=== PATIENT | female | born 1990 | race Caucasian/White ===

== ENCOUNTER 2019-02-18 11:10 | Day surgery (SDC) | payer OTHER, SELFPAY ==
[2019-02-14 13:24] VITALS: BMI 31.0
[2019-02-18] VITALS (7 sets, daily range): BP systolic 107–134; BP diastolic 65–86; PULSE 71–92; RESP 11–20; TEMP 36.2–36.6; O2SAT 93–98; BMI 31.0
--- NOTE | 2019-02-18 | DI.RAD.S_ITS ---
PROCEDURE: XR HUMERUS RT 2V INDICATIONS: FX REPAIR, BROKE IN OCTOBER 16, NOT HEALING TECHNIQUE: 2 views of the humerus were acquired. [facility] [place], XR HUMERUS RIGHT, 02/03/2019, 9:24. FINDINGS: Bones: Intraoperative examination demonstrates improved alignment status post ORIF of mid right humeral shaft fracture. Fixation plate and screws are in expected positions. Soft tissues: No suspicious soft tissue calcifications. IMPRESSION: Improved alignment status post ORIF. Dictated by: Quinton Marti [facility] Interpreted: Aylin Vidal MD on 02/18/2019 at 17:18 Approved by: Aylin Vidal M.D. on 02/18/2019 at 17:43
[2019-02-18] MEDS: LACTATED RINGERS 1,000 ML 42 ML IV ×2 (12:30→14:48)
--- NOTE | 2019-02-18 12:44 | PM.PREOP ---
Pre-operative Note Interval Note History & Physical reviewed/Exam performed by Physician: Yes Changes to H&P: No
--- NOTE | 2019-02-18 13:21 | PM.OP.1 ---
Operative Date/Time/Diagnoses Date of procedure: 02/18/19 Time of procedure: 15:50 Pre-op diagnosis: Right humerus fracture nonunion Post-op diagnosis: same Procedure & Clinicians Procedure: Open reduction internal fixation of right humerus fracture with plate and iliac crest bone graft Same procedure as scheduled: Yes Indications: 28-year-old female is over 3 months after a right humerus fracture. She was treated with a brace but went on to a nonunion. It was felt that she would benefit from ORIF with bone graft. Risks and benefits of surgery discussed and appropriate consent obtained. Surgeon: Travis Tang Supervisor Type Bar And Segment: Liss Jolley Anesthesia Type: General and Peripheral nerve block Operative Notes Findings: None Closure Type: primary Specimen(s): none sent Prosthetic devices, grafts, tissues, transplants, or devices: Synthes large frag plate and screws Estimated Blood Loss (mL): 20 Procedure in detail: Patient brought to the operating room and intubated on the table. She had already had a preoperative block. Attention was turned towards the well-marked right upper extremity. Time-out was performed. Preoperative antibiotics were given. The right arm and pelvis was prepped and draped in standard sterile fashion. We made a curved longitudinal incision over the lateral border of the right biceps for standard anterolateral approach. The fascia was split. She was quite scarred in from the fibrous nonunion but we were able to identify the mobile wad as well as the biceps. The lateral cutaneous nerve was identified distally. We retracted the biceps medially and expose the brachioradialis which was somewhat shredded and split this down the middle. We did minimal retraction through the brachialis laterally in order to protect the radial nerve from any traction. The fracture was exposed. We used curettes and elevators to subperiosteally elevated up the proximal fragment end. Once we were able to finally free this up we used a curette to open up the canal and decorticate and remove all the previous fibrous tissue until the fracture was exposed down to bleeding bone. We then began exposing the distal fragment. Again we subperiosteally elevated up around the fracture edges and removed all the fibrous scar tissue until finally we could free this up. A curette was again used to open up the intramedullary canal and decorticate remove all the old fibrous nonunion tissue to we came down to fresh bleeding bone. The fracture was reduced under x-ray guidance. I then took a 7 hole large fragment DCS plate. This was held with a clamp on the distal fragment and confirmed reduction with x-ray. We placed a neutral screw. We then moved the clamp to the proximal fragment with care to spare remained subperiosteal just at the distal aspect. Reduction was confirmed on x-ray. We then placed a screw with compression and tightened it down. X-ray showed good reduction. We then filled the remainder of the holes on both sides with 3 bicortical screws on each end. The middle hole was empty over the fracture site itself. Final x-rays were taken. The wound was then copiously irrigated. A small stab incision was made over the right pelvis lateral to the ASIS. A Jamshidi needle was passed through the pelvis and 3 mL of bone marrow were aspirated. This was mixed with DMB bloody. The bone graft was placed into the canal as well as around the fracture site. Fascia and superficial were closed. The skin was closed. Sterile dressing was placed. She was then extubated brought to recovery with no complications. Complications: none Post-operative Condition: stable Disposition: PACU Plan for aftercare: Outpatient. Begin gentle range of motion with pendulums as tolerated.
[2019-02-18] MEDS: CEFAZOLIN 2 GM/100 ML FROZ.PIGGY IV (13:44)
--- NOTE | 2019-02-18 13:45 | SUR.PREOP ---
Addendum entered by Jackelin Coon R.N. 02/18/19 13:52: Rhythm strip and VS on paper documentation. Tolerated the procedure well, A&O throughout. Glasses to the OR with her. Stable Original Note: 1316 Pt in room 5 for regional block. Put on O2 at 2LNP, continuous VS and cardiac monitoring. Rx given by Dr. Iverson 1320 DrMarlo prepping site, pt awake, oriented, tolerating medication well. Was teary prior to Rx, resolved.
--- NOTE | 2019-02-18 14:05 | SUR.OPER ---
Supine on padded OR bed, head on pillow, arms secured on padded arm boards at <90 degrees abduction, legs uncrossed, safety belt at thigh, tape over blanket over lower legs.
[2019-02-18] MEDS: SODIUM CHLORIDE 0.9% 1,000 ML, GENTAMICIN 80 MG IRR (14:12)
--- NOTE | 2019-02-18 14:12 | P.PCN_ITS ---
Procedures Date/Time Date of procedure: 02/18/19 Time of procedure: 13:20 General Procedure description: Ultrasound guided supraclavicular brachial plexus nerve block for post op pain control after right humerus ORIF by Dr. Tang. Risk an d benefits of procedure discussed with patient. ASA monitoring applied to patient. O2 given via nasal cannula. 2 mg Versed and 100 mcg fentanyl given for procedural sedation. Skin site was prepped with chlorhexidine and allowed to fully dry. Sterile gloves, mask, hat and probe cover were used to maintain sterility. 2% lidocaine and 30ga needle was used to make a small skin wheal at needle insertion site. Under ultrasound guidance, a 21ga 50mm Pajunk needle was directed posterior to the clavicle toward the 1st rib and subclavian artery. Nerve bundles superficial to subclavian artery were infiltrated with 10 mL 0.5% ropivacaine and 5mg dexamethasone. Then nerve bundles deep and lateral to the subclavian were infiltrated with 10mL 0.5% ropi + 10mg dex. Patient reported mild, resolving parasthesias after needle repositioning. Patient tolerated procedure well.
[2019-02-18] MEDS: BUPIVACAINE 0.5% W/ EPI (PF) VIAL 30 ML INJ (14:13)
--- NOTE | 2019-02-18 14:14 | SUR.OPER ---
GLASSES IN LABELED BAG TO PACU WITH PATIENT.
--- NOTE | 2019-02-18 16:10 | SUR.PHASEI ---
to PACU awake, drowsy, oriented. Dr. Tang and DJ have spoken with patient, told her to use her sling (pt states that her has it). 160 HOB eleveted, water given. Denies pain/nausea.
--- NOTE | 2019-02-18 16:56 | SUR.PHASEII ---
1645 Ambulated to bathroom, stable on feet, voided w/o difficulty. RUE status stable. No pain or nausea. Ring in right ear, tape removed. States that they have all belongings. Stable and pleasant
== END 2019-02-18 16:47 | disposition home or self-care (01) ==
PROVIDERS: PCP Family Medicine; Visit Provider Orthopaedic Surgery
PROC: (CPT 24515; principal; 2019-02-18 13:15)
DX: S42.321 Displaced transverse fracture of shaft of humerus, right arm (principal); G89.18 Other acute postprocedural pain; F17.210 Nicotine dependence, cigarettes, uncomplicated
CPT/HCPCS: 24515; 20900; 64415; 64450; 73060; 76000; J0690; J1100; J2250; J2405; J2704; J3010

== ENCOUNTER → 2019-06-09 16:21 | Outpatient (CLI) | payer OTHER, SELFPAY ==
[2019-06-09 18:08] LABS: Thyroid Stimulating Hormone 1.27 uIU/mL (0.47-4.68)
[2019-06-10 13:20] LABS: Pregnancy Test Serum,Qual Negative (Negative)
[2019-06-13 08:02] LABS: Varicella IgG Antibody < 135.00 Index (< 135.00)
== END ==
PROVIDERS: PCP Family Medicine; Referring Provider Obstetrics & Gynecology; Visit Provider Obstetrics & Gynecology
DX: N91.1 Secondary amenorrhea (principal)
CPT/HCPCS: 36415; 84146; 84443; 84703; 86762; 86765; 86787

== ENCOUNTER → 2019-06-24 08:29 | Outpatient (CLI) | payer OTHER, SELFPAY ==
[2019-06-24 10:06] LABS: Progesterone, Total 0.82 ng/mL
== END ==
PROVIDERS: PCP Family Medicine; Referring Provider Obstetrics & Gynecology; Visit Provider Obstetrics & Gynecology
DX: N91.2 Amenorrhea, unspecified (principal)
CPT/HCPCS: 36415; 84144

== ENCOUNTER → 2019-09-30 08:16 | Outpatient (CLI) | payer OTHER, SELFPAY ==
[2019-09-30 10:44] LABS: Progesterone, Total 9.06 ng/mL
== END ==
PROVIDERS: PCP Family Medicine; Referring Provider Obstetrics & Gynecology; Visit Provider Obstetrics & Gynecology
DX: N97.0 Female infertility associated with anovulation (principal)
CPT/HCPCS: 36415; 84144

== ENCOUNTER → 2019-10-24 07:37 | Outpatient (CLI) | payer OTHER, SELFPAY ==
[2019-10-24 10:01] LABS: HCG Quantitative /Beta subunit 27131 mIU/mL
== END ==
PROVIDERS: PCP Family Medicine; Referring Provider Obstetrics & Gynecology; Visit Provider Obstetrics & Gynecology
DX: N92.6 Irregular menstruation, unspecified (principal)
CPT/HCPCS: 36415; 84702

== ENCOUNTER → 2019-11-05 08:58 | Outpatient (CLI) | payer OTHER, SELFPAY ==
[2019-11-05 09:58] LABS: Add Manual Diff / Slide Review NO; Basophils Absolute Auto 0 /uL (0-100); Basophils Percent Auto 0.4 % (0-2); Eosinophils Absolute Auto 100 /uL (0-450); Eosinophils Percent Auto 1.5 % (2-4); Hematocrit 41.3 % (36-46); Hemoglobin 13.8 g/dL (12.0-16.0); Lymphocytes Absolute Auto 1500 /uL (1100-4500); Lymphocytes Percent Auto 15.7 % (25-40); Mean Corpuscular HGB Conc 33.6 % (30-36); Mean Corpuscular Hemoglobin 29.8 PG (26-34); Mean Corpuscular Volume 88.8 fL (80-100); Monocytes Absolute Auto 700 /uL (0-900); Neutrophils Absolute Auto 7100 /uL (1500-7000); Neutrophils Percent Auto 75.4 % (50-75); Platelet Count 230 X10^3/uL (150-400); Red Blood Cell Count 4.64 X10^6/uL (4.0-5.2); Red Cell Distribution Width 12.8 % (11.6-14.8); White Blood Cell Count 9.4 X10^3/uL (4.5-11.0)
[2019-11-06 04:39] LABS: RPR Screen Non Reactive (Non Reactive)
[2019-11-06 15:56] LABS: Hepatitis B Surface Antigen NEGATIVE s/c (NEGATIVE)
[2019-11-06 16:14] LABS: HIV 1 & 2 Ab/Ag 4th Gen Combo NEGATIVE (NEGATIVE); Hep C Virus Ab w/Reflex Quant NEGATIVE s/c (NEGATIVE)
[2019-11-11 12:36] LABS: CF Result Comment: (.)
== END ==
PROVIDERS: PCP Family Medicine; Referring Provider Obstetrics & Gynecology; Visit Provider Obstetrics & Gynecology
DX: Z34.01 Encounter for supervision of normal first pregnancy, first trimester (principal); Z3A.08 8 weeks gestation of pregnancy
CPT/HCPCS: 36415; 80055; 81223; 86803; 86850; 86900; 86901; 87389

== ENCOUNTER → 2019-12-31 08:25 | Outpatient (CLI) | payer OTHER, SELFPAY ==
[2020-01-07 22:49] LABS: AFP, Serum 20.9 ng/mL (.); Calc Gestational Age EDD (.); Estriol, Free 0.71 ng/mL (.); Inhibin A, Dimeric 52.19 pg/mL (.); Inhibin A, MoM 0.38 (.); Maternal Ethnicity Caucasian (.); Maternal Weight 211 lbs (.); Number of Fetuses No (.); OSBR Risk 1 IN 10000 (.); Results Report (.); Test Results *Screen Negative* (.); hCG, MoM 0.61 (.); hCG, Serum 20584 mIU/mL (.)
== END ==
PROVIDERS: PCP Family Medicine; Referring Provider Obstetrics & Gynecology; Visit Provider Obstetrics & Gynecology
DX: Z34.02 Encounter for supervision of normal first pregnancy, second trimester (principal); Z3A.16 16 weeks gestation of pregnancy
CPT/HCPCS: 36415; 82105; 82677; 84702; 86336

== ENCOUNTER → 2020-01-26 09:09 | Outpatient (CLI) | payer OTHER, SELFPAY ==
--- NOTE | 2020-01-26 09:10 | DI.US.S_ITS ---
PROCEDURE: US OB >= 14 WEEKS FETUS INDICATIONS: ANATOMY SCAN OUTSIDE/PRIOR DATING DATA: Last menstrual period (LMP): 09/09/19. LMP-based estimated date of delivery (CHRIS): 06/15/20 . First dating scan (date and location): 11/05/19 . Estimated date of delivery (CHRIS) from first dating scan: 06/20/20 . TECHNIQUE: Real-time scanning was performed of the fetus, with image documentation and biometric measurements. Endovaginal scanning: Not needed COMPARISON: [facility], , OB >= 14 WEEKS FETUS, 12/31/2019, 8:12. FINDINGS: General: A single living intrauterine gestation is present. Presentation: Breech. Placenta: Placental position is anterior , without previa. Amniotic fluid index: 15.5 cm, normal range is 5-24 cm. heart rate: 149 beats per minute. Maternal cervical canal: 3.2 cm long. Normal lower limit is 2.5 cm. biometrics: Biparietal diameter: 5.0 cm, 21 weeks 0 days Head circumference: 17.4 cm, 20 weeks 0 days Abdominal circumference: 14.7 cm, 20 weeks 0 days Femur length: 3.2 cm, 20 weeks 1 day Estimated gestational age from initial scan: 19 weeks 1 day Composite gestational age from present scan: 20 weeks 2 days Estimated weight and percentile: 330 g, 90 second percentile Measurement variability for biometric dating: +/- 7 days from 14 weeks to 15 weeks 6 days gestation, +/- 10 days from 16 weeks to 21 weeks 6 days gestation, +/- 2 weeks from 22 weeks to 27 weeks 6 days gestation, +/- 3 weeks for 28 weeks gestation or later. weight reference: 4500 g or EFW >90/95% is considered macrosomia or large for gestational age. EFW <10% is small for gestational age. EFW 5% or less is considered intra-uterine growth restriction. Anatomic survey: Neuro: Ventricles are non-dilated at less than 10 mm. Cisterna magna is normal at 3-11 mm. Cerebellum is normal in size and morphology. Nuchal skin fold: Normal at less than 6 mm between 14-21 weeks gestational age. Face: Nose and lips, facial profile are not well seen due to positioning. Spine: Sacral region not well seen due to positioning. Heart: 4-chambered heart is present, with normal ventricular outflow tracts. Diaphragm: Diaphragm is intact. Stomach: Left-sided stomach is present. Kidneys: No hydronephrosis. Normal is less than 5 mm in 2nd trimester, less than 7 mm in 3rd trimester. Cord: 3-vessel cord has orthotopic insertion. Bladder: Normal in size. Extremities: All 4 extremities identified. IMPRESSION: Appropriate interval growth, no anomaly seen but the facial area and the sacral region of the spine were not well visualized due to positioning. Follow-up limited Ob ultrasound in 1-2 weeks is recommended to attempt completion of the anatomic survey. The delivery date is projected to be centered on 06/20/20. Current positioning is breech. Dictated by: Austyn Jonas M.D. on 01/26/2020 at 15:14 Approved by: Austyn Jonas M.D. on 01/26/2020 at 15:18
== END ==
PROVIDERS: PCP Family Medicine; Referring Provider Family Medicine; Visit Provider Obstetrics & Gynecology
DX: Z34.02 Encounter for supervision of normal first pregnancy, second trimester (principal); Z3A.20 20 weeks gestation of pregnancy
CPT/HCPCS: 76811

== ENCOUNTER → 2020-01-28 09:06 | Outpatient (CLI) | payer OTHER, SELFPAY | PROVIDERS: PCP Family Medicine; Visit Provider Obstetrics & Gynecology | DX: Z34.02 Encounter for supervision of normal first pregnancy, second trimester (principal); Z3A.20 20 weeks gestation of pregnancy | CPT/HCPCS: 87086 ==

== ENCOUNTER → 2020-02-04 07:16 | Outpatient (CLI) | payer OTHER, SELFPAY ==
--- NOTE | 2020-02-04 07:17 | DI.US.S_ITS ---
PROCEDURE: US OB FOLLOW UP INDICATIONS: FOLLOW-UP OUTSIDE/PRIOR DATING DATA: Last menstrual period (LMP): 09/09/19. LMP-based estimated date of delivery (CHRIS): 06/15/20 . First dating scan (date and location): 11/05/19 . Estimated date of delivery (CHRIS) from first dating scan: 06/20/20 . TECHNIQUE: Real-time scanning was performed of the fetus, with image documentation. Endovaginal scanning: Not needed COMPARISON: None. FINDINGS: A single living intrauterine gestation is present. Presentation: Breech. Placenta: Placental position is anterior , without previa. Amniotic fluid index: 15.2 cm, normal range is 5-24 cm. heart rate: 133 beats per minute. Estimated gestational age from initial scan: 20 weeks 3 days Completion of the anatomic survey was accomplished, with excellent visualization of the facial area nose and lips, and the sacral spine area also appears normal. . IMPRESSION: Completion of the anatomic survey accomplished, no anomaly found, delivery date projected to be centered on 06/20/20. Dictated by: Austyn Jonas M.D. on 02/04/2020 at 8:47 Approved by: Austyn Jonas M.D. on 02/04/2020 at 8:50
== END ==
PROVIDERS: PCP Family Medicine; Referring Provider Family Medicine; Visit Provider Obstetrics & Gynecology
DX: Z36.2 Encounter for other antenatal screening follow-up (principal); Z3A.20 20 weeks gestation of pregnancy
CPT/HCPCS: 76816

== ENCOUNTER → 2020-03-04 09:37 | Outpatient (CLI) | payer OTHER, SELFPAY ==
[2020-03-04 11:24] LABS: Hematocrit 37.5 % (36-46)
[2020-03-04 11:41] LABS: GTT (PREG) 1 Hour PP 50gm Dose 109 mg/dL (76-139)
== END ==
PROVIDERS: PCP Family Medicine; Referring Provider Obstetrics & Gynecology; Visit Provider Obstetrics & Gynecology
DX: Z34.02 Encounter for supervision of normal first pregnancy, second trimester (principal); Z3A.26 26 weeks gestation of pregnancy
CPT/HCPCS: 36415; 82950; 85014; 85018

== ENCOUNTER 2020-05-06 15:34 | Outpatient (CLI) | payer OTHER, SELFPAY | END 2020-05-06 16:40 | disposition home or self-care (01) | LOC: LABOR 16:08 → OB 05-07 11:07 | PROVIDERS: PCP Family Medicine; Referring Provider Obstetrics & Gynecology; Visit Provider Obstetrics & Gynecology | DX: O36.8330 Maternal care for abnormalities of the fetal heart rate or rhythm, third trimester, not applicable or unspecified (principal); O32.1XX0 Maternal care for breech presentation, not applicable or unspecified; Z3A.34 34 weeks gestation of pregnancy | CPT/HCPCS: 59025; G0378; G0379 ==

== ENCOUNTER → 2020-05-17 11:28 | Outpatient (CLI) | payer OTHER, SELFPAY ==
[2020-05-18 07:48] LABS: Strep Grp B PCR NEG for Grp B Strep
== END ==
PROVIDERS: PCP Family Medicine; Visit Provider Obstetrics & Gynecology
DX: Z34.03 Encounter for supervision of normal first pregnancy, third trimester (principal); Z3A.35 35 weeks gestation of pregnancy
CPT/HCPCS: 87653

== ENCOUNTER 2020-05-17 11:57 | Outpatient (CLI) | payer OTHER, SELFPAY | END 2020-05-17 12:55 | disposition home or self-care (01) | LOC: LABOR 12:18 → OB 15:30 | PROVIDERS: PCP Family Medicine; Referring Provider Obstetrics & Gynecology; Visit Provider Obstetrics & Gynecology | DX: O32.1XX0 Maternal care for breech presentation, not applicable or unspecified (principal); Z3A.35 35 weeks gestation of pregnancy | CPT/HCPCS: 59025; 87653; G0378; G0379 ==

== ENCOUNTER 2020-05-24 15:30 | Outpatient (CLI) | payer OTHER, SELFPAY | END 2020-05-24 16:17 | disposition home or self-care (01) | LOC: LABOR 15:38 → OB 05-25 07:35 | PROVIDERS: PCP Family Medicine; Referring Provider Obstetrics & Gynecology; Visit Provider Obstetrics & Gynecology | DX: O32.1XX0 Maternal care for breech presentation, not applicable or unspecified (principal); Z3A.36 36 weeks gestation of pregnancy | CPT/HCPCS: 59025; G0378; G0379 ==

== ENCOUNTER 2020-05-27 14:42 | Outpatient (CLI) | payer OTHER, SELFPAY | END 2020-05-27 15:12 | disposition home or self-care (01) | LOC: LABOR 15:00 → OB 05-28 12:31 | PROVIDERS: PCP Family Medicine; Referring Provider Obstetrics & Gynecology; Visit Provider Obstetrics & Gynecology | DX: O32.1XX0 Maternal care for breech presentation, not applicable or unspecified (principal); Z3A.37 37 weeks gestation of pregnancy | CPT/HCPCS: 59025; G0378; G0379 ==

== ENCOUNTER 2020-05-29 13:21 | Inpatient (IN) | payer OTHER, SELFPAY ==
--- NOTE | 2020-05-29 13:31 | P.HPOB_ITS ---
OB HPI History of Present Condition Chief complaint: Narrative: Gabby Junior is a 29 year old female 1 para 0 at 37-,4/7 weeks with spontaneous rupture of membranes with bloody fluid and breech presentation. Evaluation Evaluation Baseline heart rate: 186 Variability: Average (6-10) monitor accelerations: Present monitor decelerations: Absent Uterine Contraction Intensity: Mild Status: Category ll Cervical dilation (cm): 0 PFSH Medical History (Updated 05/10/20 @ 07:18 by Karine Funez MD) Irregular menstrual cycle Right humeral fracture (10/12/18) Surgical History (Updated 10/29/19 @ 16:16 by Maria Elena Galvan RN) History of open reduction and internal fixation (ORIF) procedure (~02/18/19) [place] teeth removed Family History (Updated 10/29/19 @ 16:13 by Maria Elena Galvan RN) Father Hypertension Mother Stroke Acute leukemia Seizures Grandmother Lupus History of colon surgery Sepsis Grandmother Uterine cancer Grandfather No known health problems Grandfather Family estrangement Social History marital status: details: Jm Junior [phone] household members: spouse lives independently: Yes pets and animals: Yes (Dogs and Cats ) education level: other ([employer] ) occupational status: employed ([employer]) current occupational exposures/hazards: Yes (Pandemic) Previous occupational history: [employer] veda/catholic: Jewish special veda needs: No leisure activities: other (Horseback riding) seatbelt use: always helmet use: No water heater temp set < 120 deg: Yes working smoke detector in home: Yes fire extinguisher in home: Yes carbon monox detector in home: Yes firearms in home: Yes firearms unloaded and locked: Yes Smoking Status: Former smoker (Quit October 2018) Tobacco: How many years used: 8 second hand exposure: No alcohol intake: former (pre- : rare use) substance use type: does not use and marijuana (occasional use, edibles) during the past year weight has: remained stable well-balanced diet: daily or most days daily servings fruits/ve-4 caffeine: Yes eating out: 1-3 times/week frequency: 3-4 times per week duration: 30-45 minutes/day Meds Home Medications and Allergies Home Medications Medication Instructions Recorded Confirmed Type prenat.vits,darian,qxt-pjtg-mmspj 1 tab PO DAILY 10/29/19 05/27/20 History Double Electric Breast Pump #1 ea 05/25/20 05/27/20 Rx Allergies Allergy/AdvReac Type Severity Reaction Status Date / Time No Known Drug Allergies Allergy Verified 05/27/20 14:16 Exam Vital Signs (past 8 hours): Generally: Patient in mild distress secondary to bleeding mild contractions Lungs: Clear to auscultation bilaterally Cardiovascular: Regular rate and rhythm Abdomen: Gravid Fundal height: 38 cm Estimated weight 7 lb Extremities: Trace edema, 1+ DTRs Assessment and Plan Assessment and Plan Assessment and Plan narrative: Assessment: 29-year-old 1 para 0 at 37-,4/7 weeks gestation with spontaneous rupture of membranes with bloody fluid Breech presentation Plan: Primary low-transverse section The risks, benefits, and alternatives to the procedure were explained to the patient. The risks including bleeding, infection, injury to the bowel, bladder, or ureters. She understands these risks and agrees to proceed. A full par Q was held and consent form was signed. Time Spent with Patient Total time spent with greater than 50% in coordination of care (as documented) at patient's floor/unit and/or counseling patient:: 15-24 minutes
--- NOTE | 2020-05-29 13:33 | PM.PREOP ---
Pre-operative Note COVID-19 COVID-19 status: Negative Result date/Date tested (Pos, Neg/Pending): 05/29/20 Interval Note History & Physical reviewed/Exam performed by Physician: Yes Changes to H&P: No H&P completed within 30 days and has changed as indicated here:: 05/29/20
[2020-05-29] MEDS: CEFAZOLIN 2 GM/100 ML FROZ.PIGGY IV (13:40)
[2020-05-29 13:42] LABS: Add Manual Diff / Slide Review NO; Basophils Absolute Auto 100 /uL (0-100); Basophils Percent Auto 0.6 % (0-2); Eosinophils Absolute Auto 200 /uL (0-450); Eosinophils Percent Auto 1.4 % (2-4); Hematocrit 41.5 % (36-46); Lymphocytes Absolute Auto 1800 /uL (1100-4500); Lymphocytes Percent Auto 16.7 % (25-40); Mean Corpuscular HGB Conc 33.6 % (30-36); Mean Corpuscular Hemoglobin 30.1 PG (26-34); Mean Corpuscular Volume 89.5 fL (80-100); Monocytes Absolute Auto 1000 /uL (0-900); Monocytes Percent Auto 9.4 % (3-14); Neutrophils Absolute Auto 7700 /uL (1500-7000); Neutrophils Percent Auto 71.9 % (50-75); Platelet Count 208 X10^3/uL (150-400); Red Blood Cell Count 4.64 X10^6/uL (4.0-5.2); Red Cell Distribution Width 12.7 % (11.6-14.8); White Blood Cell Count 10.8 X10^3/uL (4.5-11.0)
[2020-05-29 13:52] VITALS: BP 130/74
[2020-05-29 13:54] LABS: COVID19 -Nasal RAPID Negative (Negative)
[2020-05-29] MEDS: LACTATED RINGERS 1,000 ML 100 ML IV ×2 (14:11→15:35)
--- NOTE | 2020-05-29 14:15 | SUR.OPER ---
Supine on Padded OR bed, head on pillow, safety belt at thigh, arms secured on padded arm boards at <90 degrees abduction. Bump under right buttock. Legs uncrossed with pillow under knees, gel pad to heels, tape over blanket to lower legs.
[2020-05-29 14:48] VITALS: BP 108/59; PULSE 77; RESP 11; TEMP 36.8; O2SAT 100
--- NOTE | 2020-05-29 14:50 | PM.PROC.1 ---
Procedures Date/Time Date of procedure: 05/29/20 Time of procedure: 14:09 General Procedure description: Pamphlet Distributor Documentation I assisted the OB software test and validation engineer in the section for this patient. My responsibilities included retracting and suctioning, and following with suture during closure. Please see the OB's note for details of the surgery. Complications: other (PROM, partial abruption, breech presentation)
[2020-05-29 14:52] VITALS: BP 123/69; PULSE 77; RESP 14; O2SAT 100
[2020-05-29 14:57] VITALS: BP 121/74; PULSE 76; RESP 11; O2SAT 100
[2020-05-29 15:07] VITALS: BP 119/79; PULSE 83; RESP 15; O2SAT 100
--- NOTE | 2020-05-29 15:17 | P.OP_ITS ---
Operative Date/Time/Diagnoses Date of procedure: 05/29/20 Time of procedure: 15:17 Pre-op diagnosis: Intrauterine at 37 and 4 7th weeks gestation Breech presentation Spontaneous rupture of membranes Post-op diagnosis: same Procedure & Clinicians Procedure: Procedures Operation Date: 05/29/20 14:00 Actual Procedures Side Surgeon p Section Karine Funez MD Indications: Thirty-seven and 4 7th weeks gestation Breech presentation Spontaneous rupture of membranes Surgeon: Karine Funez Front Load Trash Truck Driver: Sandy Caraballo Anesthesia Type: Spinal (With Duramorph) Operative Notes Findings: Live female infant in the single footling breech presentation Normal uterus, tubes, and ovaries Closure Type: primary Specimen(s): other (Cord bloods, placenta) Applied: catheter (To continuous drainage) Estimated blood loss (mL): 500 Blood products transfused: none Procedure in detail: The patient was taken to the operating room where she was placed in the seated position. Spinal anesthesia was administered. She was then placed in the dorsal supine position with a leftward tilt. She was prepped and draped in the usual sterile fashion. A timeout was performed. After spinal analgesia was found to be adequate, a Pfannenstiel skin incision was made 2 fingerbreadths above the pubic symphysis and carried through to the underlying layer fascia. The fascia was nicked in the midline, and the incision extended bilaterally with the Pfeiffer scissors. The superior aspect of the fascial incision was grasped with a Shankar clamps, elevated, and the underlying rectus muscles dissected off sharply and bluntly. Attention was then turned to the inferior aspect of this incision which in a similar fashion was grasped with a Shankar clamps, elevated, and the underlying rectus muscles dissected off sharply and bluntly. The rectus muscles were in the midline. The peritoneum was identified, grasped between 2 hemostats, and entered sharply with the Metzenbaum scissors. This incision was extended superiorly and inferiorly with good visualization of the bladder. The bladder blade was inserted. The vesicouterine peritoneum was identified, grasped with the pickup, and entered sharply with the Metzenbaum scissors. This incision was extended bilaterally, and the bladder flap was created digitally. The bladder blade was reinserted. The lower uterine segment was incised in a transverse fashion with the scalpel. Upon entering the amniotic sac there was a small amount of clear amniotic fluid. The was delivered by total breech extraction. The nose and mouth were suctioned with bulb suction. The remainder of the body delivered without difficulty. The cord was double clamped and cut. The was handed off to waiting RN and Peds. The placenta was delivered manually. The uterus was cleared of all clots and debris. There was a small marginal abruption at the edge of the placenta. There was found to be an extension of the uterine incision on the right side. This was repaired in a running interlocking suture with #1 chromic. The uterine incision was repaired with #1 chromic in a running interlocking fashion, and a second layer the same suture was used for an imbricating layer. Hemostasis was achieved. The tubes and ovaries were examined and were found to be normal. The gutters were cleared of all clots and debris. The bladder flap was reapproximated using 2-0 Vicryl in a running fashion. The parietal peritoneum was closed using 2-0 Vicryl in a running fashion. The fascia was reapproximated using 0 Vicryl in a running fashion. Subcutaneous layer was copiously irrigated with warm normal saline. 4 simple interrupted sutures of 3-0 Vicryl were placed to reapproximate the subcutaneous layer. The skin was closed with 4-0 Biosyn in a subcuticular fashion. Steri- Strips were placed. An Aquacel dressing was placed. The uterus was expressed of a small amount of old blood. Sponge, lap, and instrument counts were correct ?-2. The patient tolerated the procedure well, and was taken to PACU in stable condition. Complications: other (Marginal abruption approximately 5%) Post-operative Condition: stable Disposition: PACU Plan for aftercare: To the center after recovery
--- NOTE | 2020-05-29 15:21 | SUR.PHASEI ---
Report to MCKENZIE Rinaldi OB. Tranferred pt in stable condition.
[2020-05-29] MEDS: KETOROLAC 30 MG/ML VIAL IV (21:24)
[2020-05-30] MEDS: KETOROLAC 30 MG/ML VIAL IV ×2 (05:17→11:37)
[2020-05-30] MEDS: ACETAMINOPHEN 325 MG TABLET 650 MG PO ×3 (05:49→17:22)
[2020-05-30] MEDS: OXYCODONE IR 5 MG TABLET PO ×4 (05:49→21:54)
[2020-05-30 08:26] LABS: Hematocrit 35.8 % (36-46); Hemoglobin 11.6 g/dL (12.0-16.0)
--- NOTE | 2020-05-30 12:25 | P.PNOB_ITS ---
Subjective - OB Subjective Patient comments: no complaints, pain well controlled, tolerating diet and flatus present baby status: doing well and nursing well [place] feeding status: exclusively breast feeding Date Patient Seen: 05/30/20 Time Patient Seen: 12:26 Interval history: Patient is a 29-year-old 1 para 1 who is postop day # 1 status post primary low-transverse section for spontaneous rupture membranes and a single footling breech presentation at 37 and 4 7th weeks gestation. Exam Vital Signs (past 8 hours): Oxygen Delivery Method Room Air Narrative Exam Narrative: Generally: Sitting up in bed, nursing , no acute distress Lungs: Clear to auscultation bilaterally Cardiovascular: Regular rate and rhythm Abdomen: Soft, good bowel sounds Incision: Clean dry and intact with Aquacel dressing Extremities: Trace edema, negative Homans Objective Labs Result Diagrams: 05/30/20 08:11 Labs: Laboratory Results - last 24 hr 05/29/20 05/29/20 05/29/20 13:25 13:25 13:30 WBC 10.8 RBC 4.64 Hgb 14.0 Hct 41.5 MCV 89.5 MCH 30.1 MCHC 33.6 RDW 12.7 Plt Count 208 Neut % (Auto) 71.9 Lymph % (Auto) 16.7 L Navarro % (Auto) 9.4 Eos % (Auto) 1.4 L Baso % (Auto) 0.6 Neut # (Auto) 7700 H Lymph # (Auto) 1800 Navarro # (Auto) 1000 H Eos # (Auto) 200 Baso # (Auto) 100 SARS-CoV-2 (PCR) Negative Blood Type O Positive Antibody Screen Negative Crossmatch See Detail 05/30/20 08:11 WBC RBC Hgb 11.6 L Hct 35.8 L MCV MCH MCHC RDW Plt Count Neut % (Auto) Lymph % (Auto) Navarro % (Auto) Eos % (Auto) Baso % (Auto) Neut # (Auto) Lymph # (Auto) Navarro # (Auto) Eos # (Auto) Baso # (Auto) SARS-CoV-2 (PCR) Blood Type Antibody Screen Crossmatch Assessment & Plan Plan day: 1 plan OB: routine postop care Time Spent With Patient Time: Total time spent is greater than 50% in coordination of care (as documented) at patient's floor/unit and/or counseling patient: Time with patient: less than 15 minutes
[2020-05-30] MEDS: DOCUSATE 250 MG CAPSULE PO (13:27)
[2020-05-30] MEDS: PRENATAL VIT,CALC/IRON/FOLIC 1 TABLET 1 TAB PO (13:28)
[2020-05-30] MEDS: LANOLIN OINT 7 GM 1 APPLIC TOP (13:28)
[2020-05-30] MEDS: IBUPROFEN 600 MG TABLET PO (17:22)
[2020-05-31] MEDS: ACETAMINOPHEN 325 MG TABLET 650 MG PO ×3 (01:23→13:24)
[2020-05-31] MEDS: IBUPROFEN 600 MG TABLET PO ×3 (01:23→13:24)
[2020-05-31] MEDS: OXYCODONE IR 5 MG TABLET PO ×3 (02:23→13:24)
[2020-05-31 07:04] VITALS: BP 121/83; PULSE 78; RESP 16; TEMP 36.6
[2020-05-31] MEDS: DOCUSATE 250 MG CAPSULE PO (07:40)
[2020-05-31] MEDS: PRENATAL VIT,CALC/IRON/FOLIC 1 TABLET 1 TAB PO (07:40)
--- NOTE | 2020-06-02 01:01 | PM.OBDS.1 ---
Discharge Providers Provider Date of admission: 05/29/20 13:21 Discharge Date: 05/31/20 Primary care physician: Reji Cedeno MD Consults: 05/29/20 16:04 Consult to Medical Pathology Teacher Routine Comment: 05/30/20 15:52 Consult to Medical Pathology Teacher Routine Comment: Discharge provider: Karine Funez MD Summary Hospital Course Date Patient Seen: 05/31/20 Time Patient Seen: 11:30 Diagnoses: Thirty-eight weeks gestation Breech presentation Spontaneous rupture of membranes Primary low-transverse section Spinal anesthesia Hospital Course: Patient is a 29-year-old 1 para 1 who presented on May 29, 2020 with spontaneous rupture membranes with bloody amniotic fluid. She was scheduled for a section on June 07, 2020 for persistent breech presentation. She has had borderline oligohydramnios. She underwent an urgent primary low transverse section without complication. She was found to have a marginal abruption. Her course was unremarkable. On postop day # 2 she was tolerating a diet, pain was well controlled, going well, ambulating independently, and able to void without the catheter. Peripartum Data Delivery Method: Emergency Section Laceration Description: None Episiotomy description: None Procedures: Primary low-transverse section Spinal anesthesia complications: none Sharon 1: Gender: Female Disposition of : home Status at Discharge Cognitive/behavioral status at discharge: oriented Functional status at discharge: independent ambulation Overall status at discharge: patient is progressing back to baseline Time Spent with Patient Time attestation: Total time spent providing and/or coordinating discharge services: Time spent: Less than 30 minutes Objective Labs Result Diagrams: 05/30/20 08:11 Exam Vital Signs (past 8 hours): Oxygen Delivery Method Room Air Discharge Plan Discharge Plan Patient Disposition: Home Provider Discharge Comment: Patient to call with fever, chills, redness or drainage around the incision, or bleeding vaginally more than a pad in an hour Tylenol 650 mg every 6 hours ibuprofen 600 mg every 6 hours oxycodone 5 mg every 3 hours as needed Discharge orders & Medications Prescriptions: New ibuprofen 600 mg tablet 600 mg PO Q6H PRN (Reason: cramping or bleeding) Qty: 30 RF: 2 oxycodone 5 mg tablet 5 mg PO Q4H PRN (Reason: pain) Qty: 20 RF: 0 Continued (DME) Double Electric Breast Pump See Rx Instructions .Route .MEDSUPPLY Qty: 1 RF: 0 prenat.vits,darian,yjn-pggf-sudsp Tablet 1 tab PO DAILY RF: 0 Follow up/Referrals: Karine Funez MD [Physician] - 1 Week (June 07, Sunday, at 4:15pm with Dr Funez for dressing removal) Diet/Activity/Treatments Diet: Regular Activity: No heavy lifting. Nothing more than a gal of milk or baby. No baby in car seat Skin/Wound/Dressing Care Report to your healthcare provider any signs of infection, such as:: chills, fever, increased pain, unusual drainage and unusual redness Dressing: Do not removed Visit Report/Discharge Packet Instructions: DI for , DI for Prescription Opioid Use Stand Alone Forms: Discharge: Care Discharge Data Primary Care Provider: Reji Cedeno
== END 2020-05-31 14:40 | disposition home or self-care (01) | DRG 786 ==
PROVIDERS: Admitting Provider Obstetrics & Gynecology; PCP Family Medicine; Referring Provider Obstetrics & Gynecology; Visit Provider Obstetrics & Gynecology
PROC: 10D00Z1 Extraction of Products of Conception, Low, Open Approach (ICD-10-PCS; CPT 59514; principal; 2020-05-29 14:00)
DX: O64.8XX0 Obstructed labor due to other malposition and malpresentation, not applicable or unspecified (principal); O45.93 Premature separation of placenta, unspecified, third trimester; O42.92 Full-term premature rupture of membranes, unspecified as to length of time between rupture and onset of labor; Z3A.37 37 weeks gestation of pregnancy; Z37.0 Single live birth; Z20.822 Contact with and (suspected) exposure to COVID-19
CPT/HCPCS: 36415; 59050; 59510; 85014; 85018; 85025; 86850; 86900; 86901; 87635; C9803; G0379; J0690; J1885; J2274; J2590

== ENCOUNTER → 2021-10-20 17:02 | Outpatient (CLI) | payer OTHER, SELFPAY ==
[2021-10-20 17:19] LABS: Add Manual Diff / Slide Review NO; Basophils Absolute Auto 0 /uL (0-100); Basophils Percent Auto 0.4 % (0-2); Eosinophils Absolute Auto 100 /uL (0-450); Eosinophils Percent Auto 1.5 % (2-4); Hematocrit 38.2 % (36-46); Hemoglobin 13.4 g/dL (12.0-16.0); Lymphocytes Absolute Auto 2000 /uL (1100-4500); Lymphocytes Percent Auto 21.2 % (25-40); Mean Corpuscular HGB Conc 35.1 % (30-36); Mean Corpuscular Hemoglobin 30.4 PG (26-34); Mean Corpuscular Volume 86.5 fL (80-100); Monocytes Absolute Auto 800 /uL (0-900); Monocytes Percent Auto 8.1 % (3-14); Neutrophils Absolute Auto 6500 /uL (1500-7000); Neutrophils Percent Auto 68.8 % (50-75); Platelet Count 218 X10^3/uL (150-400); Red Blood Cell Count 4.42 X10^6/uL (4.0-5.2); Red Cell Distribution Width 12.7 % (11.6-14.8); White Blood Cell Count 9.5 X10^3/uL (4.5-11.0)
[2021-10-20 18:29] LABS: Hepatitis B Surface Antigen NEGATIVE s/c (NEGATIVE)
[2021-10-20 19:25] LABS: HIV 1 & 2 Ab/Ag 4th Gen Combo NEGATIVE (NEGATIVE); Hep C Virus Ab w/Reflex Quant NEGATIVE s/c (NEGATIVE)
[2021-10-22 08:53] LABS: RPR Screen Non Reactive (Non Reactive); Varicella IgG Antibody <135 index (Immune >165)
== END ==
PROVIDERS: PCP Family Medicine; Referring Provider Obstetrics & Gynecology; Visit Provider Obstetrics & Gynecology
DX: Z34.81 Encounter for supervision of other normal pregnancy, first trimester (principal)
CPT/HCPCS: 36415; 80055; 86787; 86803; 86850; 86900; 86901; 87389

== ENCOUNTER → 2021-11-17 16:44 | Outpatient (CLI) | payer OTHER, SELFPAY ==
[2021-11-17 18:46] LABS: Appearance Urine UA CLEAR; Bilirubin Urine UA NEGATIVE (NEGATIVE); Color Urine UA YELLOW; Glucose Urine UA NEGATIVE (Negative); Ketones Urine UA NEGATIVE (NEGATIVE); Leukocyte Esterase Urine UA NEGATIVE (NEGATIVE); Nitrite Urine UA NEGATIVE (Negative); Occult Blood Urine UA TRACE-LYSED (Negative); Protein Urine UA NEGATIVE (Negative); Specific Gravity Urine UA 1.015 (1.000-1.035); Urobilinogen Urine UA 0.2 E.U./dL (0.2)
== END ==
PROVIDERS: PCP Family Medicine; Referring Provider Obstetrics & Gynecology; Visit Provider Obstetrics & Gynecology
DX: Z34.81 Encounter for supervision of other normal pregnancy, first trimester (principal); Z3A.13 13 weeks gestation of pregnancy
CPT/HCPCS: 81003; 87086

== ENCOUNTER → 2021-12-15 16:13 | Outpatient (CLI) | payer OTHER, SELFPAY ==
[2021-12-20 21:22] LABS: AFP, Serum 21.6 ng/mL (.); Estriol, Free 0.73 ng/mL (.); Inhibin A, Dimeric 60.84 pg/mL (.); Inhibin A, MoM 0.48 (.); Maternal Ethnicity Caucasian (.); Maternal Weight 212 lbs (.); Number of Fetuses No (.); OSBR Risk 1 IN 10000 (.); Results Report (.); Test Results *Screen Negative* (.); hCG, Serum 22596 mIU/mL (.)
== END ==
PROVIDERS: PCP Family Medicine; Referring Provider Specialist; Visit Provider Specialist
DX: Z34.82 Encounter for supervision of other normal pregnancy, second trimester (principal); Z3A.17 17 weeks gestation of pregnancy
CPT/HCPCS: 36415; 82105; 82677; 84702; 86336

== ENCOUNTER → 2022-01-05 09:14 | Outpatient (CLI) | payer OTHER, SELFPAY ==
--- NOTE | 2022-01-05 09:16 | DI.US.S_ITS ---
PROCEDURE: US OB >= 14 WEEKS FETUS INDICATIONS: ANATOMY OUTSIDE/PRIOR DATING DATA: Last menstrual period (LMP): 08/17/2021. LMP-based estimated date of delivery (CHRIS): 05/24/2022. First dating scan (date and location): 10/20/2021. Estimated date of delivery (CHRIS) from first dating scan: 05/27/2022. TECHNIQUE: Real-time scanning was performed of the fetus, with image documentation and biometric measurements. Endovaginal scanning: Not performed COMPARISON: [facility], , US OB >= 14 WEEKS FETUS, 12/15/2021, 16:06. FINDINGS: General: A single living intrauterine gestation is present. Presentation: Vertex. Placenta: Placental position is anterior , without previa. Amniotic fluid index: 18.2 cm, normal range is 5-24 cm. Single deepest vertical pocket is 5.8 cm. heart rate: 157 beats per minute. Maternal cervical canal: 3.7 cm long. Normal lower limit is 2.5 cm. biometrics: Biparietal diameter: 4.8 cm, 20 weeks 3 days Head circumference: 17.2 cm, 19 weeks 5 days Abdominal circumference: 14.3 cm, 19 weeks 4 days Femur length: 3.2 cm, 20 weeks 1 day estimated gestational age: 20 weeks 1 day Composite gestational age from present scan: 20 weeks 0 days Estimated weight and percentile: 318 g, 30th percentile Anatomic survey: Neuro: Ventricles are non-dilated at less than 10 mm. Cisterna magna is normal at 3-11 mm. Cerebellum is normal in size and morphology. Nuchal skin fold: Normal at less than 6 mm between 14-21 weeks gestational age. Face: Nose and lips, facial profile are normal. Spine: No evidence for spina bifida. Heart: 4-chambered heart is present, with normal ventricular outflow tracts. Diaphragm: Diaphragm is intact. Stomach: Left-sided stomach is present. Kidneys: No hydronephrosis. Normal is less than 5 mm in 2nd trimester, less than 7 mm in 3rd trimester. Cord: 3-vessel cord has orthotopic insertion. Bladder: Normal in size. Extremities: All 4 extremities identified. IMPRESSION: 1. Single living intrauterine . 2. Normal 2nd trimester anatomy survey. No anomalies detected at this time. We strive to produce accurate, complete, and clear reports of imaging services. To assist us in improving patient care, this report was composed using standard report templates and voice recognition software. Therefore, it may contain abnormal punctuation, insertions and/or omissions. Occasional wrong-word or sound-alike substitutions may occur. Though we review the report and make efforts to correct it, we do recommend that the report be read carefully in proper context to recognize any text inaccuracies. Dictated by: Nico Traore M.D. on 01/05/2022 at 16:26 Approved by: Nico Traore M.D. on 01/05/2022 at 16:32
== END ==
PROVIDERS: PCP Family Medicine; Referring Provider Specialist; Visit Provider Specialist
DX: Z34.82 Encounter for supervision of other normal pregnancy, second trimester (principal); Z3A.20 20 weeks gestation of pregnancy
CPT/HCPCS: 76811

== ENCOUNTER → 2022-01-10 15:32 | Outpatient (CLI) | payer OTHER, SELFPAY ==
[2022-01-10 21:20] LABS: Urine N gonorrhoeae NOT DETECTED
[2022-01-10 21:54] LABS: Urine Chlamydia NOT DETECTED
== END ==
PROVIDERS: PCP Family Medicine; Visit Provider Obstetrics & Gynecology
DX: Z34.81 Encounter for supervision of other normal pregnancy, first trimester (principal); Z3A.20 20 weeks gestation of pregnancy
CPT/HCPCS: 87491; 87591

== ENCOUNTER → 2022-02-13 07:33 | Outpatient (CLI) | payer OTHER, SELFPAY ==
[2022-02-13 09:13] LABS: Hematocrit 38.5 % (36-46); Hemoglobin 12.9 g/dL (12.0-16.0)
[2022-02-13 09:45] LABS: GTT (PREG) 1 Hour PP 50gm Dose 109 mg/dL (76-139)
== END ==
PROVIDERS: PCP Family Medicine; Referring Provider Obstetrics & Gynecology; Visit Provider Obstetrics & Gynecology
DX: Z34.82 Encounter for supervision of other normal pregnancy, second trimester (principal); Z3A.25 25 weeks gestation of pregnancy
CPT/HCPCS: 82950; 85014; 85018

== ENCOUNTER → 2022-04-28 14:38 | Outpatient (CLI) | payer OTHER, SELFPAY ==
[2022-04-29 11:55] LABS: Strep Grp B PCR POS for Grp B Strep
== END ==
PROVIDERS: PCP Family Medicine; Visit Provider Obstetrics & Gynecology
DX: Z34.83 Encounter for supervision of other normal pregnancy, third trimester (principal); Z3A.36 36 weeks gestation of pregnancy
CPT/HCPCS: 87653